=== PATIENT | male | born 1980 | race Two or more races ===

== ENCOUNTER 2019-01-27 15:38 | Emergency (ER) | payer SELFPAY ==
[~2019-01-27] VITALS: Ht 154.9 cm; Wt 78.0 kg
[2019-01-27 15:42] VITALS: BP 139/98; PULSE 110; RESP 24; Ht 154.9 cm; Wt 78.0 kg
== END 2019-01-27 16:24 | disposition left against medical advice (07) ==
LOC: E/R 15:38
DX: Z53.21 Procedure and treatment not carried out due to patient leaving prior to being seen by health care provider (principal)